=== PATIENT | female | born 1995 | race Caucasian/White ===

== ENCOUNTER 2019-04-20 20:36 | Emergency (ER) | payer SELFPAY ==
[~2019-04-20] VITALS: Ht 170.2 cm; Wt 59.0 kg
[2019-04-20] MEDS ORDERED: XANAX1 MG PO (20:52)
[2019-04-20] MEDS ORDERED: ZOFRAN4 MG PO (23:51)
== END 2019-04-21 00:04 | disposition home or self-care (01) ==
LOC: ED 20:36
DX: K52.9 Noninfective gastroenteritis and colitis, unspecified (principal); Z88.0 Allergy status to penicillin
CPT/HCPCS: 74177; 80053; 81001; 83690; 84703; 85025; 96361; 99284-25; J1170; J1200; J1885; J2405; J7030; Q9967